=== PATIENT | female | born 1965 | race Caucasian/White ===

== ENCOUNTER → 2024-01-21 07:24 | Outpatient (REF) | payer MEDICARE, OTHER, SELFPAY ==
[2024-01-21 08:40] LABS: % Basophils 1.1 % (0-2); % Eosinophils 30.9 % (0-6); % Immature Granulocytes 0.5 % (0-0.5); % Lymphocytes 18.7 % (20.5-51.1); % Monocytes 12.7 % (1.7-9.3); % Neutrophils 36.1 % (42.2-75.2); Absolute Basophils 0.1 10^3/uL (0-0.2); Absolute Eosinophils 1.8 10^3/uL (0-0.7); Absolute Lymphocytes 1.1 10^3/uL (1.2-3.4); Absolute Monocytes 0.7 10^3/uL (0.1-0.6); Hematocrit 35.9 % (37.0-47.0); Hemoglobin 11.7 g/dL (12.0-16.0); Mean Corp Hgb Conc. 32.6 g/dL (33.0-37.0); Mean Corpuscular Volume 89.1 fL (81.0-99.0); Mean Platelet Volume 9.9 fL (7.4-10.4); Nucleated Red Blood Cells % 0 %; Platelet Count 282 10^3/uL (130-400); Red Blood Cell Count 4.03 10^6/uL (4.20-5.40); Red Cell Dist. Width 13.8 % (11.5-14.5); White Blood Cell Count 5.7 10^3/uL (4.8-10.8)
[2024-01-21 09:03] LABS: ALT (SGPT) 13 U/L (0-35); AST (SGOT) 29 U/L (14-36); Alkaline Phosphatase 96 U/L (38-126); Blood Urea Nitrogen 12 mg/dl (7-17); Calcium 9.7 mg/dl (8.4-10.2); Carbon Dioxide 26 mmol/L (22-30); Chloride 102 mmol/L (98-107); Glucose 80 mg/dl (70-99); HDL Cholesterol 63 mg/dl; LDL Cholesterol, Calculated 105 mg/dl; Sodium 139 mmol/L (135-145); Total Bilirubin 0.5 mg/dl (0.2-1.3); Total Cholesterol 180 mg/dl (50-199); Total Protein 7.7 g/dl (6.3-8.2); Triglyceride 63 mg/dl (10-149); Very Low Density Lipoprotein 12 mg/dl (0-30); eGFR > 60.00
[2024-01-21 09:10] LABS: Free T4 1.19 ng/dl (0.78-2.19)
[2024-01-21 09:24] LABS: TSH 8.98 uIU/ml (0.47-4.68)
== END ==
LOC: REG 07:24
PROVIDERS: ATTENDING PHYSICIAN Internal Medicine
DX: L50.3 Dermatographic urticaria (principal); E03.9 Hypothyroidism, unspecified
CPT/HCPCS: 36415; 80053; 80061; 84439; 84443; 85025

== ENCOUNTER 2024-03-06 19:08 | Emergency (ER) | payer MEDICARE, OTHER, SELFPAY ==
[2024-03-06 19:11] VITALS: BP 153/86
[2024-03-06 19:33] LABS: % Basophils 0.9 % (0-2); % Eosinophils 10.9 % (0-6); % Immature Granulocytes 0.2 % (0-0.5); % Lymphocytes 19.3 % (20.5-51.1); % Monocytes 11.6 % (1.7-9.3); % Neutrophils 57.1 % (42.2-75.2); Absolute Eosinophils 0.5 10^3/uL (0-0.7); Absolute Lymphocytes 0.8 10^3/uL (1.2-3.4); Absolute Monocytes 0.5 10^3/uL (0.1-0.6); Absolute Neutrophils 2.5 10^3/uL (1.4-6.5); Hematocrit 34.6 % (37.0-47.0); Hemoglobin 11.7 g/dL (12.0-16.0); Mean Corp Hgb Conc. 33.8 g/dL (33.0-37.0); Mean Corpuscular Hgb 28.7 pg (27.0-31.0); Mean Platelet Volume 9.6 fL (7.4-10.4); Nucleated Red Blood Cells % 0 %; Platelet Count 307 10^3/uL (130-400); Red Blood Cell Count 4.07 10^6/uL (4.20-5.40); Red Cell Dist. Width 13.7 % (11.5-14.5); White Blood Cell Count 4.3 10^3/uL (4.8-10.8)
[2024-03-06 19:57] LABS: ALT (SGPT) 16 U/L (0-35); AST (SGOT) 30 U/L (14-36); Albumin 4.7 g/dl (3.5-5.0); Alkaline Phosphatase 114 U/L (38-126); Blood Urea Nitrogen 15 mg/dl (7-17); Calcium 10.1 mg/dl (8.4-10.2); Carbon Dioxide 25 mmol/L (22-30); Chloride 103 mmol/L (98-107); Glucose 105 mg/dl (70-99); Potassium 4.2 mmol/L (3.5-5.1); Sodium 141 mmol/L (135-145); Total Bilirubin 0.5 mg/dl (0.2-1.3); Total Protein 9.1 g/dl (6.3-8.2); eGFR > 60.00
[2024-03-06 20:22] VITALS: BMI 21.8
[2024-03-06 20:27] LABS: TSH Reflex To Free T4 3.65 uIU/ml (0.47-4.68)
--- NOTE | 2024-03-06 20:46 | ED.GENMED ---
History of Present Illness
General
Chief Complaint: Heart Rate Problem
Source: patient
Time Seen by Provider: 03/06/24 20:36
History of Present Illness
History of Present Illness:
58-year-old female presents to the emergency room complaining of palpitations. Patient states she was sitting and developed sudden onset of rapid heartbeat in her chest. She felt lightheaded and dizzy. She did things like colder breath to try to
get it to stop. She 'googled' what this could be. When her home they decided to come get evaluated. Tachycardia was present for about 2 hours. Upon arrival to the emergency room the patient's symptoms had improved. She denies any
previous episodes. She does endorse using Benadryl on a daily basis due to itching she has from chronic lymphedema in her lower extremities.
Past History
Past History
ED Past Medical History: Hypothyroidism and Other (Chronic lymphema of both legs, Elephantitis, chronic abdominal pains, Cellulitis, Renal failure,)
ED Past Surgical History: Urological (L kidney removed)
Social History
Tobacco: Former smoker
Alcohol: None
Personal:
Living: with family
Phy Exam
Physical Exam
Physical Exam:
General: Awake, Alert, Oriented X3. No acute distress.
Vitals: unremarkable
Head: Atraumatic
Eyes: Pupils equal, EOMI
Throat: Airway intact, no exudates
Neck: Trachea midline
Lungs: Clear and equal b/l
Heart: Regular rate, no murmurs
Abd: Soft, Nontender, No pulsatile mass
Neuro: Nonfocal
Skin: Warm, dry, no rash
Extremities: pulses equal b/l, no edema
Course
Orders/Labs/Results
Orders:
Orders
03/06/24 19:14
Electrocardiogram (*1) Urgent
Reason for Study: Tachycardia
03/06/24 19:15
EKG- Treatment ONCE
03/06/24 19:27
CMP [Comprehensive Metabolic Panel] Urgent
Complete Blood Count/With Diff Urgent
TSH Reflex To Free T4 Urgent
Abnormal Lab Results
03/06/24
19:27
WBC 4.3 L 10^3/uL
(4.8-10.8)
RBC 4.07 L 10^6/uL
(4.20-5.40)
Hgb 11.7 L g/dL
(12.0-16.0)
Hct 34.6 L %
(37.0-47.0)
Absolute Lymphs (auto) 0.8 L 10^3/uL
(1.2-3.4)
Lymphocytes % 19.3 L %
(20.5-51.1)
Monocytes % 11.6 H %
(1.7-9.3)
Eosinophils % 10.9 H %
(0-6)
Glucose 105 H mg/dl
(70-99)
Total Protein 9.1 H g/dl
(6.3-8.2)
03/06/24 19:27
03/06/24 19:27
Vital Signs
Initial and Last Documented VS:
Initial Vital Signs
Temp Pulse Resp BP Pulse Ox
98.4 F 94 18 153/86 99
03/06/24 19:11 03/06/24 19:11 03/06/24 19:11 03/06/24 19:11 03/06/24 19:11
Last Documented Vital Signs
Temp Pulse Resp BP Pulse Ox
98.4 F 77 17 153/86 97
03/06/24 19:11 03/06/24 20:30 03/06/24 20:30 03/06/24 19:11 03/06/24 20:30
MDM/Problems Addressed
Differential Diagnosis Includes:
SVT, A-fib, PACs, PVCs, anxiety attack
MDM/Problems Addressed:
Patient gives a convincing story for some tacky dysrhythmia. Unclear what exactly the rhythm was that she arrived in normal sinus rhythm. Patient observed on the monitor here without any dysrhythmia. Labs are unremarkable. Patient given contact
information for Dr. Ralf cabral who is on-call for [facility]. She should also follow-up with her primary care provider.
*Pulse Oximetry
Patient hypoxic: no
*EKG
Interpreted by ED Provider?: Yes
Interpretation: normal
Heart Rate: 78
Rate: normal
Rhythm: sinus
[place]: normal axis
Interval: normal interval
QRS Pattern: normal QRS
Ischemia: no ischemia
*[employer]ician Interpretation
Rate: normal
Interpretation: normal
Heart Rate: 78
Rhythm: sinus
*Critical Care Note
Total Time (30-74mins, 75-104mins- exclusive of procedures): Not Applicable
Patient Management
Social determinants of health affecting care: Strong social support
ED Attending Note
-
Portions of this chart may have been created with voice recognition software.� Occasional wrong word or��sound alike� substitutions may have occurred due to the inherent limitations of voice recognition software.
Discharge Plan
Departure
Patient Disposition: Home (Routine Discharge)
Date of Disposition: 03/06/24
Time of Disposition: 20:47
Patient with high blood pressure during this ER visit?: Yes
Condition: Good
Discharge Problem:
Palpitations
Instructions: Palpitations (DC)
Prescriptions:
No Action
fentanyl 75 MCG patch 72 hour
300 mcg transdermal Q48H
Patient Comments:
4 patches, removed upon arrival to ED because of lethargy
oxycodone 5 MG tablet
5 mg PO Q6H
Patient Comments:
DUE AT 2100
prochlorperazine maleate 10 MG tablet
10 mg PO Q6H
Referrals:
Grzywacz,Reese W., MD [Active] -
UNKNOWN - PT DOES,NOT KNOW [Unknown Provider] -
Interventions
Interventions:
*Risk Screen - Suicide Last Done: 03/06/24 20:19
*General Assessment Last Done: 03/06/24 20:19
*Neglect/Abuse Screening Last Done: 03/06/24 19:14
ED- Fall Risk Assessment Last Done: 03/06/24 20:25
*ED COVID-19 Vaccine History Last Done: 03/06/24 20:50
*Nursing Disposition Last Done: 03/06/24 20:50
ED- Cardiac Assessment Last Done: 03/06/24 20:25
ED- Pulmonary Assessment Last Done: 03/06/24 20:25
Discharge Date and Time
Discharge Date/Time: 03/06/24 21:12
Print Language: SAMMARINESE
== END 2024-03-06 21:12 | disposition home or self-care (01) ==
LOC: EMR 19:08
PROVIDERS: Emergency Medicine; EMERGENCY PHYSICIAN Emergency Medicine; FAMILY PHYSICIAN Internal Medicine
DX: R00.2 Palpitations (principal); R42 Dizziness and giddiness; R03.0 Elevated blood-pressure reading, without diagnosis of hypertension; I89.0 Lymphedema, not elsewhere classified; L29.9 Pruritus, unspecified; E03.9 Hypothyroidism, unspecified; Z87.891 Personal history of nicotine dependence; Z90.5 Acquired absence of kidney; Z88.1 Allergy status to other antibiotic agents; Z88.2 Allergy status to sulfonamides
CPT/HCPCS: 99283; 80053; 84443; 85025; 93005

== ENCOUNTER → 2024-12-04 07:56 | Outpatient (REF) | payer MEDICARE, OTHER, SELFPAY ==
[2024-12-04 09:01] LABS: % Basophils 0.8 % (0-2); % Immature Granulocytes 0.3 % (0-0.5); % Monocytes 12.3 % (1.7-9.3); % Neutrophils 49.6 % (42.2-75.2); Absolute Eosinophils 0.2 10^3/uL (0-0.7); Absolute Lymphocytes 1.2 10^3/uL (1.2-3.4); Absolute Monocytes 0.4 10^3/uL (0.1-0.6); Absolute Neutrophils 1.8 10^3/uL (1.4-6.5); Hematocrit 36.5 % (37.0-47.0); Hemoglobin 11.9 g/dL (12.0-16.0); Mean Corp Hgb Conc. 32.6 g/dL (33.0-37.0); Mean Corpuscular Hgb 29.5 pg (27.0-31.0); Mean Corpuscular Volume 90.3 fL (81.0-99.0); Mean Platelet Volume 10.6 fL (7.4-10.4); Nucleated Red Blood Cells % 0 %; Platelet Count 194 10^3/uL (130-400); Red Blood Cell Count 4.04 10^6/uL (4.20-5.40); Red Cell Dist. Width 13.8 % (11.5-14.5); White Blood Cell Count 3.6 10^3/uL (4.8-10.8)
[2024-12-04 09:31] LABS: ALT (SGPT) 15 U/L (0-35); AST (SGOT) 27 U/L (14-36); Albumin 4.8 g/dl (3.5-5.0); Alkaline Phosphatase 84 U/L (38-126); Blood Urea Nitrogen 20 mg/dl (7-17); Calcium 9.9 mg/dl (8.4-10.2); Carbon Dioxide 26 mmol/L (22-30); Chloride 106 mmol/L (98-107); Glucose 89 mg/dl (70-99); HDL Cholesterol 83 mg/dl; LDL Cholesterol, Calculated 106 mg/dl; Potassium 3.8 mmol/L (3.5-5.1); Sodium 143 mmol/L (135-145); Total Bilirubin 0.5 mg/dl (0.2-1.3); Total Cholesterol 200 mg/dl (50-199); Total Protein 8.5 g/dl (6.3-8.2); Triglyceride 56 mg/dl (10-149); Very Low Density Lipoprotein 11 mg/dl (0-30); eGFR > 60.00
[2024-12-04 09:46] LABS: Free T3 2.78 pg/ml (2.77-5.27); Free T4 1.23 ng/dl (0.78-2.19)
[2024-12-04 10:19] LABS: Glycohemoglobin (HgbA1c) 5.2 % (4.0-5.6)
== END ==
LOC: REG 07:56
PROVIDERS: ATTENDING PHYSICIAN Internal Medicine
DX: Z13.6 Encounter for screening for cardiovascular disorders (principal); M79.3 Panniculitis, unspecified; E03.9 Hypothyroidism, unspecified; Z13.1 Encounter for screening for diabetes mellitus
CPT/HCPCS: 36415; 80053; 80061; 83036; 84439; 84443; 84481; 85025

== ENCOUNTER → 2025-02-19 10:20 | Outpatient (REF) | payer MEDICARE, OTHER, SELFPAY ==
[2025-02-19 12:22] LABS: ALT (SGPT) 16 U/L (0-35); AST (SGOT) 26 U/L (14-36); Albumin 4.4 g/dl (3.5-5.0); Alkaline Phosphatase 77 U/L (38-126); Direct Bilirubin 0.2 mg/dl (0.0-0.4); Total Bilirubin 0.5 mg/dl (0.2-1.3); Total Protein 8.2 g/dl (6.3-8.2)
[2025-02-19 12:25] LABS: Erythrocyte Sed Rate 36 mm/hour (0-20)
[2025-02-19 12:28] LABS: Glycohemoglobin (HgbA1c) 5.3 % (4.0-5.6)
[2025-02-19 12:55] LABS: Free T4 1.51 ng/dl (0.78-2.19); Vitamin D, 25-OH*** < 12.8 ng/mL (30-80)
[2025-02-19 13:09] LABS: TSH 0.84 uIU/ml (0.47-4.68)
[2025-02-19 16:06] LABS: Hepatitis C Antibody Negative (Negative)
[2025-02-19 16:28] LABS: Folate 12.6 ng/ml (2.76-20); Vitamin B12 333 pg/ml (239-931)
[2025-02-20 19:39] LABS: Hepatitis A Antibody, Total Negative (Negative)
[2025-02-21 00:50] LABS: Total T3 (Sendout) 118 ng/dL (80-200)
[2025-02-21 01:24] LABS: Homocysteine 10 umol/L (0-15)
[2025-02-21 02:36] LABS: ANA, IgG Reflex to HEp-2 Detected (None Detected)
[2025-02-21 05:12] LABS: Endomysial IgA Antibody Titer <1:10 (<1:10)
[2025-02-21 18:31] LABS: SSA 52 (Ro)(ENA) Ab, IgG 15 AU/mL (0-40); SSA 60 (Ro)(ENA) Ab, IgG 1 AU/mL (0-40); SSB (La)(ENA) Ab, IgG 2 AU/mL (0-40)
[2025-02-21 20:22] LABS: HLA-B27 Negative (Negative)
[2025-02-22 23:56] LABS: IgA 308 mg/dl (70-400)
== END ==
LOC: REG 10:20
PROVIDERS: ATTENDING PHYSICIAN Psychiatry & Neurology Neurology; FAMILY PHYSICIAN Internal Medicine
DX: M93.1 Kienbock's disease of adults (principal); E13.42 Other specified diabetes mellitus with diabetic polyneuropathy; D51.0 Vitamin B12 deficiency anemia due to intrinsic factor deficiency; M45.0 Ankylosing spondylitis of multiple sites in spine; E72.11 Homocystinuria; D52.9 Folate deficiency anemia, unspecified; R94.6 Abnormal results of thyroid function studies; Z20.828 Contact with and (suspected) exposure to other viral communicable diseases; E55.9 Vitamin D deficiency, unspecified
CPT/HCPCS: 36415; 80076; 82306; 82607; 82746; 82784; 83036; 83090; 83516; 83921; 84439; 84443; 84480; 85652; 86038; 86231; 86235; 86430; 86618; 86708; 86803; 86812